=== PATIENT | male | born 1965 | race African-American/Black ===

== ENCOUNTER 2016-11-27 11:12 | Inpatient (IN) | payer MEDICAID ==
[~2016-11-27] VITALS: Ht 180.3 cm; Wt 97.5 kg
[~2016-11-27 11:12] MED LIST: ASPI325T2 PO; ATOR40TA70 PO; CLOP75TA33 PO; GLIP10TA10 PO; LOSA100T14 PO; METF500T4 PO; Metoprolol PO
[2016-11-27 12:44] LABS: BASOPHILS % 1.3 % (0.0-2.0); EOSINOPHILS % 0.7 % (0.0-5.0); HEMATOCRIT. 34.4 % (42.0-52.0); HEMOGLOBIN. 11.5 g/dL (14.0-18.0); MEAN CORPUSCULAR HEMOGLOBIN 27.4 pg (28.0-32.0); MEAN CORPUSCULAR VOLUME 81.8 fL (80.0-94.0); MEAN PLATELET VOLUME 9.2 fl (7.4-10.4); MONOCYTES % 9.8 % (2.0-8.0); NEUTROPHILS % 66.2 % (40.0-76.0); PLATELET 233 x1000/uL (130-400); RED BLOOD CELL COUNT 4.21 mill/uL (4.7-6.1); RED CELL DISTRIBUTION WIDTH 13.4 % (11.6-14.6)
[2016-11-27 12:45] LABS: CHLORIDE 97 mEq/L (98-107)
[2016-11-27 12:47] LABS: INR 1.1; PROTHROMBIN TIME 11.8 sec
[2016-11-27 12:52] LABS: CARBON DIOXIDE 28 mEq/L (21-32)
[2016-11-27 12:56] LABS: TROPONIN I 0.12 ng/mL (0.00-0.04)
[2016-11-27] MEDS ORDERED: MORPHINE SULFATE 4 MG/ML CPJ (NOT FOR IM USE) IV STA (13:09)
[2016-11-27] MEDS ORDERED: ASPIRIN 81MG TABLET PO ONE (13:15)
[2016-11-27] MEDS ORDERED: AMPICILLIN SOD/SULBACTAM NA 3 G in SODIUM CHLORIDE 0.9% 100 ML IV SCH (13:15)
[2016-11-27] MEDS ORDERED: NITROGLYCERIN 0.4MG TABLET SL SL PRN (13:15)
[2016-11-27 16:32] VITALS: BP 152/87
[2016-11-27 17:00] VITALS: BP 132/79
[2016-11-27 20:00] VITALS: BP 140/84
[2016-11-27] MEDS ORDERED: DEXTROSE 50% WATER 50ML SYRINGE IV PRN (22:00)
[2016-11-28] VITALS: BP 136/82
[2016-11-28 04:00] VITALS: BP 123/70
[2016-11-28] MEDS: BLOOD SUGAR DIAGNOSTIC STRIP TEST SCH ×4 (06:55→21:44)
[2016-11-28] MEDS: INSULIN LISPRO 100 UNITS/ML SUBCUT SCH ×4 (06:56→21:45)
[2016-11-28] MEDS ORDERED: REGADENOSON 0.4 MG/5 ML IV ONE ×2 (08:00→10:54)
[2016-11-28 08:22] VITALS: BP 127/70
[2016-11-28] MEDS: CLOPIDOGREL 75MG TABLET PO SCH (08:45)
[2016-11-28] MEDS: ASPIRIN 81MG TABLET PO SCH (08:45)
[2016-11-28] MEDS: HYDROCODONE/ACETAMINOPHEN 5/325MG TABLET PO PRN ×2 (08:46→13:37)
[2016-11-28] MEDS ORDERED: SODIUM CHLORIDE 0.9% 10ML VIAL ONE (08:56)
[2016-11-28] MEDS ORDERED: IOHEXOL-350 100 ML BOTTLE ONE (08:56)
[2016-11-28] MEDS: ENOXAPARIN 30MG/0.3ML SYR SUBCUT SCH ×2 (09:00→21:44)
[2016-11-28 10:07] LABS: T4 FREE 1.23 ng/dL (0.76-1.46)
[2016-11-28 17:02] LABS: CREATINE KINASE MB FRACTION 0.9 ng/mL (0.5-3.6); TROPONIN I 0.04 ng/mL (0.00-0.04)
[2016-11-29] VITALS: BP 122/70
[2016-11-29 00:32] LABS: CREATINE KINASE MB FRACTION 0.5 ng/mL (0.5-3.6); TROPONIN I 0.04 ng/mL (0.00-0.04)
[2016-11-29 04:00] VITALS: BP 148/81
[2016-11-29] MEDS: BLOOD SUGAR DIAGNOSTIC STRIP TEST SCH ×4 (06:26→20:44)
[2016-11-29] MEDS: INSULIN LISPRO 100 UNITS/ML SUBCUT SCH ×4 (06:29→21:57)
[2016-11-29 07:20] LABS: CREATINE KINASE 107 IU/L (39-308); CREATINE KINASE MB FRACTION < 0.5 ng/mL (0.5-3.6); TROPONIN I 0.03 ng/mL (0.00-0.04)
[2016-11-29 08:00] VITALS: BP 129/76
[2016-11-29] MEDS ORDERED: SODIUM CHLORIDE 0.9% 10ML VIAL ONE (08:40)
[2016-11-29] MEDS ORDERED: IOHEXOL-350 100 ML BOTTLE ONE (08:40)
[2016-11-29] MEDS: ASPIRIN 81MG TABLET PO SCH (08:49)
[2016-11-29] MEDS: MUPIROCIN 2% OINT 22GM TOP SCH (08:49)
[2016-11-29] MEDS: CLOPIDOGREL 75MG TABLET PO SCH (08:49)
[2016-11-29] MEDS: ENOXAPARIN 30MG/0.3ML SYR SUBCUT SCH ×2 (08:49→20:33)
[2016-11-29] MEDS: LOSARTAN POTASSIUM 25 MG TABLET PO SCH (11:50)
[2016-11-29] MEDS: CARVEDILOL 3.125 MG TABLET PO SCH ×2 (11:50→20:32)
[2016-11-29 11:54] VITALS: BP 132/80
[2016-11-29] MEDS ORDERED: VANCOMYCIN 1500MG in DEXTROSE 5% WATER 250ML IV SCH (13:00)
[2016-11-29] MEDS: PIPERACILLIN/TAZ 3.375G PREMIX 50 ML IV SCH ×2 (13:56→20:31)
[2016-11-29 16:00] VITALS: BP 147/85
[2016-11-29 20:00] VITALS: BP 153/85
[2016-11-29 21:45] LABS: *AMPHETAMINES SCREEN URINE NEGATIVE (NEGATIVE); *BARBITURATES SCREEN URINE NEGATIVE (NEGATIVE); *BENZODIAZEPINES SCREEN URINE NEGATIVE (NEGATIVE); *COCAINE SCREEN URINE NEGATIVE (NEGATIVE); CANNABINOID URINE SCREEN NEGATIVE (NEGATIVE); METHADONE URINE SCREEN NEGATIVE (NEGATIVE); OPIATES URINE SCREEN PRESUMTIVE POSITIVE (NEGATIVE); PHENCYCLIDINE URINE SCREEN NEGATIVE (NEGATIVE)
[2016-11-29] MEDS: VANCOMYCIN 1 G PREMIX 200 ML IV SCH (21:49)
[2016-11-30] VITALS (7 sets, daily range): BP systolic 125–152; BP diastolic 76–87
[2016-11-30] MEDS: PIPERACILLIN/TAZ 3.375G PREMIX 50 ML IV SCH ×2 (04:13→12:07)
[2016-11-30] MEDS: VANCOMYCIN 1 G PREMIX 200 ML IV SCH ×2 (05:04→13:17)
[2016-11-30] MEDS: BLOOD SUGAR DIAGNOSTIC STRIP TEST SCH ×4 (06:21→20:39)
[2016-11-30 06:50] LABS: CARBON DIOXIDE 27 mEq/L (21-32); CHLORIDE 100 mEq/L (98-107)
[2016-11-30] MEDS: INSULIN LISPRO 100 UNITS/ML SUBCUT SCH ×4 (07:00→21:33)
[2016-11-30] MEDS: CLOPIDOGREL 75MG TABLET PO SCH (09:54)
[2016-11-30] MEDS: ENOXAPARIN 30MG/0.3ML SYR SUBCUT SCH (09:54)
[2016-11-30] MEDS: ASPIRIN 81MG TABLET PO SCH (09:54)
[2016-11-30] MEDS: MUPIROCIN 2% OINT 22GM TOP SCH (09:55)
[2016-11-30] MEDS: LOSARTAN POTASSIUM 25 MG TABLET PO SCH (09:55)
[2016-11-30] MEDS: CARVEDILOL 3.125 MG TABLET PO SCH (09:55)
[2016-12-01] MEDS ORDERED: LOSARTAN POTASSIUM 50 MG TABLET PO SCH (09:00)
[2016-12-01] MEDS ORDERED: LOSARTAN POTASSIUM 25 MG TABLET PO SCH (09:00)
== END 2016-11-30 21:30 | DRG 344 ==
LOC: ER 13:41 → 8WST 13:42
PROVIDERS: ADMIT Internal Medicine; ATTEND Internal Medicine
PROC: 02HV33Z Insertion of Infusion Device into Superior Vena Cava, Percutaneous Approach (ICD-10-PCS; principal; 2016-11-29)
PROC: B5181ZA Fluoroscopy of Superior Vena Cava using Low Osmolar Contrast, Guidance (ICD-10-PCS; 2016-11-29)
PROC: B548ZZA Ultrasonography of Superior Vena Cava, Guidance (ICD-10-PCS; 2016-11-29)
DX: E11.69 Type 2 diabetes mellitus with other specified complication (principal); M86.8X7 Other osteomyelitis, ankle and foot; E43 Unspecified severe protein-calorie malnutrition; E11.621 Type 2 diabetes mellitus with foot ulcer; I42.9 Cardiomyopathy, unspecified; D63.8 Anemia in other chronic diseases classified elsewhere; I10 Essential (primary) hypertension; L97.529 Non-pressure chronic ulcer of other part of left foot with unspecified severity; E11.51 Type 2 diabetes mellitus with diabetic peripheral angiopathy without gangrene; E11.65 Type 2 diabetes mellitus with hyperglycemia; E87.1 Hypo-osmolality and hyponatremia; E78.00 Pure hypercholesterolemia, unspecified; E78.5 Hyperlipidemia, unspecified; F17.290 Nicotine dependence, other tobacco product, uncomplicated; I25.10 Atherosclerotic heart disease of native coronary artery without angina pectoris; B95.1 Streptococcus, group B, as the cause of diseases classified elsewhere; E66.9 Obesity, unspecified; Z95.5 Presence of coronary angioplasty implant and graft; Z68.30 Body mass index [BMI] 30.0-30.9, adult; Z88.8 Allergy status to other drugs, medicaments and biological substances
CPT/HCPCS: 36415; 36569; 71010; 71275; 73630; 73721; 75635; 76937; 77001; 78452; 80048; 80053; 80061; 80202; 80305; 82550; 82553; 82962; 83036; 83880; 84439; 84443; 84484; 85025; 85379; 85610; 87040; 87070; 87077; 87205; 93005; 93017; 93306; 93923; 96365; 96366; 96375; 99291; A4216; A9500; C1725; J0295; J1650; J1815; J2270; J2543; J2785; J3370; J7040; J7050; J7060; Q9967